=== PATIENT | male | born 1950 | race Caucasian/White ===

== ENCOUNTER 2017-07-12 09:47 | Day surgery (SDC) | payer MEDICARE, OTHER ==
[~2017-07-12 09:47] MED LIST: PROPOFOL 200 MG INJ
[2017-07-12] MEDS: CEFAZOLIN 2 GM/50 ML (PMX) 50 ML IVPB (11:00)
[2017-07-12] MEDS: LIDOCAINE 2% (MDV) 20 ML INJ (13:15)
[2017-07-12] MEDS: BUPIVACAINE 0.25% (MPF) 30 ML INJ (13:15)
[2017-07-12] MEDS ORDERED: FENTAnyl 50 MCG/ML VIAL (13:17)
[2017-07-12] MEDS ORDERED: MIDAZOLAM 1 MG/ML 2 ML INJ (13:17)
[2017-07-12] MEDS ORDERED: IBUPROFEN 800 MG TAB PO (14:00)
== END 2017-07-12 15:10 | disposition home or self-care (01) ==
LOC: SDS 09:47
DX: D17.1 Benign lipomatous neoplasm of skin and subcutaneous tissue of trunk (principal)
CPT/HCPCS: 14000; 71045; 88307; 93005